=== PATIENT | female | born 1940 | race American Indian/Alaskan Native ===

== ENCOUNTER 2018-06-28 17:48 | Observation (INO) | payer MEDICARE, BC ==
[2018-06-28 18:51] LABS: BASO # 0.01 K/mm3 (0.0-2.0); BASO % 0.2 % (0.0-3.0); EOS # 0.2 (0.0-0.7); EOS % 4.7 % (1.5-5.0); GRAN # 2.9 (1.4-6.5); GRAN % 57.1 % (50.0-68.0); HEMOGLOBIN 10.7 g/dL (12.0-16.0); LYMPH # 1.3 (1.2-3.4); LYMPH % 25.6 % (22.0-35.0); MEAN CORPUSCULAR HEMOGLOBIN 27.8 pg (25.0-35.0); MEAN CORPUSCULAR HGB CONC 34.7 g/dl (31.0-37.0); MEAN PLATELET VOLUME 9.9 fl (7.0-11.0); MONO # 0.6 (0.1-0.6); MONO % 12.4 % (1.0-6.0); RBC 3.85 10^6/uL (3.5-6.1); RED CELL DISTRIBUTION WIDTH 17.2 % (11.5-14.5); WHITE BLOOD COUNT 5.1 10^3/uL (4.5-11.0)
[2018-06-28 19:00] LABS: ALB/GLOB RATIO 1.3 (1.1-1.8); ALBUMIN 4.1 g/dL (3.0-4.8); CALCIUM 9.5 mg/dL (8.4-10.5)
[2018-06-28 19:01] LABS: INR 1.02; PARTIAL THROMBOPLASTIN TIME 26.2 Seconds (25.1-36.5); PROTHROMBIN TIME 11.6 SECONDS (9.4-12.5)
--- NOTE | 2018-06-28 19:19 | ED PDOC ---
Arrival/HPI - General Chief Complaint: Abdominal Pain Time Seen by Provider: 06/28/18 17:56 Historian: Parent - History of Present Illness Narrative History of Present Illness (Text): 06/28/18 19:58 78-year-old female with a history of stroke presenting today with a one-month history of continued worsening diarrhea and abdominal pain. Patient is nonverbal but family states that the patient has been complaining of abdominal pain. They state they have noted dark stools. They state of the patient completed antibiotics for one week without improvement in the diarrhea. They stated the patient has an occasional cough. Patient denies pain in the chest. Family denies fevers at home. No other complaints Time/Duration: > month Symptom Onset: Gradual Symptom Course: Worsening Quality: Unable to Describe Past Medical History - Provider Review Nursing Documentation Reviewed: Yes - Travel History Have you recently traveled outside [place] w/in the past 3 mons?: No - Infectious Disease Hx of Infectious Diseases: None - Tetanus Immunization Tetanus Immunization: >10 years Ago - Reproductive Menopause: Yes - Cardiac Hx Hypertension: Yes - Pulmonary Hx Asthma: No Hx Bronchitis: No Hx Chronic Obstructive Pulmonary Disease (COPD): No Hx Emphysema: No - HEENT Hx HEENT Disorder: No - Renal Hx Renal Disorder: No - Endocrine/Metabolic Hx Endocrine Disorders: No - Hematological/Oncological Hx Blood Disorders: No Hx Blood Transfusions: No - Integumentary Hx Dermatological Disorder: No - Musculoskeletal/Rheumatological Hx Arthritis: Yes - Gastrointestinal Hx Gastrointestinal Disorders: Yes - Genitourinary/Gynecological Hx Cervical Cancer: Yes - Psychiatric Hx Psychophysiologic Disorder: No Hx Substance Use: No - Surgical History Hx Hysterectomy: Yes Other/Comment: PEG INsertion 2016.peg replacement 2 weeks ago. - Anesthesia Hx Anesthesia: Yes Hx Anesthesia Reactions: No Hx Malignant Hyperthermia: No - Suicidal Assessment Feels Threatened In Home Enviroment: No Family/Social History - Physician Review Nursing Documentation Reviewed: Yes Family/Social History: Unknown Family HX Smoking Status: Never Smoked Hx Alcohol Use: No Hx Substance Use: No Allergies/Home Meds Allergies/Adverse Reactions: Allergies No Known Allergies Allergy (Verified 02/22/18 12:09) Home Medications: Home Meds Medication Instructions Recorded Confirmed Losartan [Cozaar] 100 mg PEG DAILY 02/01/17 06/28/18 Allopurinol [Zyloprim] 100 mg PO DAILY 06/28/18 06/28/18 Carvedilol [Coreg] 12.5 mg PO BID 06/28/18 06/28/18 Colchicine [Mitigare] 0.6 mg PO DAILY 06/28/18 06/28/18 Losartan [Cozaar] 100 mg PO DAILY 06/28/18 06/28/18 Simvastatin 10 mg PO DAILY 06/28/18 06/28/18 hydrALAZINE [hydralazine 100 mg PO BID 06/28/18 06/28/18 Hydrochloride] Review of Systems - Review of Systems Constitutional: absent: Fevers Respiratory: Cough Cardiovascular: absent: Chest Pain Gastrointestinal: Abdominal Pain, Diarrhea. absent: Vomiting Genitourinary Female: absent: Urine Output Changes Musculoskeletal: absent: Arthralgias Physical Exam Vital Signs Reviewed: Yes Vital Signs Temp Pulse Resp BP Pulse Ox 06/28/18 18:04 99.5 F 74 18 200/94 H 96 Temperature: Afebrile Blood Pressure: Hypertensive Pulse: Regular Respiratory Rate: Normal Appearance: Positive for: Well-Appearing, Non-Toxic, Comfortable Pain Distress: None Mental Status: Positive for: other (alert) - Systems Exam Head: Present: Atraumatic Mouth: Present: Moist Mucous Membranes Neck: Present: Normal Range of Motion Respiratory/Chest: Present: Clear to Auscultation, Good Air Exchange. No: Respiratory Distress, Accessory Muscle Use, Wheezes Cardiovascular: Present: Regular Rate and Rhythm, Normal S1, S2. No: Murmurs Abdomen: Present: Tenderness (diffuse tenderness), Normal Bowel Sounds, Feeding Tubes (peg tube in place; no erythema. ). No: Peritoneal Signs, Rebound, Guarding Rectal: Present: Occult Blood, Hemorrhoids. No: Rectal Tenderness, Gross Blood, Melena, Normal Rectal Tone Upper Extremity: Present: Other (contractions bilaterally left > right) Lower Extremity: Present: Other (contractions bilaterally) Skin: Present: Warm, Dry Psychiatric: Present: Alert Medical Decision Making ED Course and Treatment: 06/28/18 20:01 Patient is nontoxic well appearing with stable vital signs presenting with diarrhea and abdominal pain CBC wnl CMP bun; 40 Lipase Patient reassessment: resting comfortably with family at bedside. vitals improved. Urinalysis CAT scan: FINDINGS: LUNG BASES: The lung bases appear clear. No pleural effusions are seen. Small pericardial effusion is present. LIVER: Unremarkable. GALLBLADDER AND BILE DUCTS: The gallbladder appears within normal limits. No radioopaque gallstones are seen. No biliary ductal dilatation is evident. PANCREAS: Unremarkable. SPLEEN: Unremarkable. ADRENAL GLANDS: Unremarkable. KIDNEYS, URETERS, AND BLADDER: Multiple bilateral renal cysts with the largest cyst within the right kidney measuring 9.1 x 6.3 cm. There is no hydronephrosis or hydroureter. No urinary calculi are seen. STOMACH AND BOWEL: PEG tube is seen within the stomach and there are multiple fluid-filled minimally distended loops of small bowel within the abdomen. Small periumbilical hernia containing fat present. APPENDIX: No evidence of acute appendicitis on CT examination. PERITONEUM: No free fluid. No free air. LYMPH NODES: No lymphadenopathy is evident. VASCULATURE: No evidence of abdominal aortic aneurysm. Advanced atherosclerotic changes present. BONES: No aggressive appearing osseous lesion. No acute osseous pathology evident. IMPRESSION: No acute intra-abdominal abnormality. Small pericardial effusion. Advanced atherosclerotic changes. Prominent renal cysts largest within the right kidney measuring 9.1 x 6.3 cm. Some fluid-filled loops of small bowel within the abdomen and pelvis. PEG tube within the stomach. Clinical correlation advised. Discussed all results with family in depth Case was discussed in depth with Dr. Cheema. admit observational status. Advised half normal saline at 40 mL/h and consult GI and nephrology. pt to be NPO/no tube feedings. all aspects of this case were discussed the attending of record. Impression: Abdominal pain, diarrhea, dehydration obs. med/surg. - Lab Interpretations Lab Results: 06/28/18 18:20 06/28/18 18:20 Lab Results 06/28/18 18:20: WBC 5.1, RBC 3.85, Hgb 10.7 L, Hct 30.8 L, MCV 80.0, MCH 27.8, MCHC 34.7, RDW 17.2 H, Plt Count 256, MPV 9.9, Gran % 57.1, Lymph % (Auto) 25.6, [place] % (Auto) 12.4 H, Eos % (Auto) 4.7, Baso % (Auto) 0.2, Gran # 2.90, Lymph # (Auto) 1.3, [place] # (Auto) 0.6, Eos # (Auto) 0.2, Baso # (Auto) 0.01 06/28/18 18:20: Sodium 132, Potassium 4.8, Chloride 95 L, Carbon Dioxide 31, Anion Gap 10, BUN 40 H, Creatinine 1.1, Est GFR ( Amer) 58, Est GFR (Non- Af Amer) 48, Random Glucose 98, Calcium 9.5, Total Bilirubin 0.4, AST 38 H D, ALT 34, Alkaline Phosphatase 96, Total Protein 7.3, Albumin 4.1, Globulin 3.3, Albumin/Globulin Ratio 1.3 06/28/18 18:20: PT 11.6, INR 1.02, APTT 26.2 - RAD Interpretation Radiology Orders: 06/28/18 18:16 CHEST PORTABLE [RAD] Stat 06/28/18 19:08 ABD & PELVIS W/O PO OR IV CONT [CT] Stat Disposition/Present on Arrival - Present on Arrival Any Indicators Present on Arrival: No History of DVT/PE: No History of Uncontrolled Diabetes: No Urinary Catheter: No History of Decub. Ulcer: No History Surgical Site Infection Following: None - Disposition Have Diagnosis and Disposition been Completed?: Yes Diagnosis: Abdominal pain, Dehydration, Diarrhea Disposition: HOSPITALIZED Disposition Time: 20:43 Patient Plan: Observation Condition: FAIR
[2018-06-28] MEDS ORDERED: Sodium Chloride 0.45% 500 ML IV ONE ×2 (22:10)
[2018-06-28 23:47] LABS: PH,URINE 7.5 (4.7-8.0); URINE BILIRUBIN NEGATIVE (NEGATIVE); URINE BLOOD NEGATIVE (NEGATIVE); URINE GLUCOSE (UA) NEGATIVE (NEGATIVE); URINE LEUKOCYTE ESTERASE NEGATIVE Leu/uL (NEGATIVE); URINE PROTEIN 30 mg/dL (<30 mg/dL); URINE UROBILINOGEN 0.2 E.U./dL (<1 E.U./dL)
[2018-06-28 23:52] LABS: URINE APPEARANCE CLEAR (CLEAR); URINE COLOR YELLOW (YELLOW)
--- NOTE | 2018-06-29 00:12 | CARD ---
APPROVED REPORT Date of service: 06/28/2018 EKG Measurement Heart [id number] <Conclusion> Normal sinus rhythm Moderate voltage criteria for LVH, may be normal variant Nonspecific T wave abnormality Poor R wave progression in Precordial leads Abnormal ECG
[2018-06-29 00:15] LABS: URINE EPITHELIAL CELLS 0 - 2 /hpf (0-5); URINE RBC 0 - 2 /hpf (0-2); URINE WBC 0 - 2 /hpf (0-6)
[2018-06-29] MEDS ORDERED: Influenza Vaccine 60 mcg/0.5 mL SYR (4YR UP) IM ONE (03:49)
[2018-06-29] MEDS ORDERED: Pneumococcal 23-Valent Vaccine IM ONE (03:49)
[2018-06-29 08:22] VITALS: RESP 20; O2SAT 100
--- NOTE | 2018-06-29 08:27 | CT ---
Date of service: 06/28/2018 PROCEDURE: CT Abdomen and Pelvis without intravenous contrast HISTORY: ABDOMINAL PAIN/diarrhea COMPARISON: None. TECHNIQUE: Technique. Contrast dose: Radiation dose: Total exam DLP = 605.28 mGy-cm. This CT exam was performed using one or more of the following dose reduction techniques: Automated exposure control, adjustment of the mA and/or kV according to patient size, and/or use of iterative reconstruction technique. FINDINGS: LOWER THORAX: Cardiomegaly. LIVER: Unremarkable. No gross lesion or ductal dilatation. GALLBLADDER AND BILE DUCTS: Unremarkable. PANCREAS: Unremarkable. No gross lesion or ductal dilatation. SPLEEN: Unremarkable. ADRENALS: Unremarkable. No mass. KIDNEYS AND URETERS: Multiple large bilateral renal cysts.. No hydronephrosis. No solid mass. VASCULATURE: Unremarkable. No aortic aneurysm. Aortic calcifications. BOWEL: Gastrostomy tube. No obstruction. No gross mural thickening. APPENDIX: Unremarkable. Normal appendix. PERITONEUM: Unremarkable. No free fluid. No free air. LYMPH NODES: Unremarkable. No enlarged lymph nodes. BLADDER: Unremarkable. REPRODUCTIVE: Hysterectomy. BONES: No acute fracture. OTHER FINDINGS: Eventration of the anterior abdominal wall as well as the pelvic floor. IMPRESSION: No acute pathology.
--- NOTE | 2018-06-29 09:24 | RAD ---
Date of service: 06/28/2018 HISTORY: abd pain COMPARISON: No prior. FINDINGS: LUNGS: No active pulmonary disease. PLEURA: No significant pleural effusion identified, no pneumothorax apparent. CARDIOVASCULAR: Aortic calcification Mild cardiomegaly no pulmonary vascular congestion. OSSEOUS STRUCTURES: No significant abnormalities. VISUALIZED UPPER ABDOMEN: Normal. OTHER FINDINGS: None. IMPRESSION: No active disease.
--- NOTE | 2018-06-29 10:17 | CP.PCM.CON ---
<Savage Tidwell - Last Filed: 06/29/18 11:52> History of Present Illness - History of Present Illness History of Present Illness: PGY6 GI Fellow Consult Note Patient is a 78yo female with PMHx significant for CVA (currently on plavix) with resultant aphasia/dysphagia requiring PEG tube, DM, HTN, CKD who presented to the ED for diarrhea and abdominal pain. The patient is unable to provide any history given her baseline aphasia. Per documentation, patient's family noted progressively worsening diarrhea for the last month with occasional "dark stool". Patient was prescribed a course of antibiotic therapy (unknown which medications were prescribed) earlier this week without improvement in symptoms. There is no record of stool frequency. Per ED and nursing, no episodes of diarrhea since arrival. Lab work unchanged from baseline. A CT performed in the ED was unremarkable. 12 system ROS cannot be performed given clinical condition PMHx: See HPI PSHx: No prior surgery documented FHx: Unable to assess Social: No history of tobacco, EtOH or illicit drug use Endo: EGD/PEG 03/03/2016 with bedside exchange on 02/22/18 Past Patient History - Infectious Disease Hx of Infectious Diseases: None - Tetanus Immunizations Tetanus Immunization: >10 years Ago - Past Medical History & Family History Past Medical History?: Yes - Past Social History Smoking Status: Unknown If Ever Smoked - CARDIAC Hx Hypertension: Yes - PULMONARY Hx Asthma: No Hx Bronchitis: No Hx Chronic Obstructive Pulmonary Disease (COPD): No Hx Emphysema: No - HEENT Hx HEENT Problems: No - RENAL Hx Chronic Kidney Disease: No - ENDOCRINE/METABOLIC Hx Endocrine Disorders: No - HEMATOLOGICAL/ONCOLOGICAL Hx Blood Disorders: No - INTEGUMENTARY Hx Dermatological Problems: No - MUSCULOSKELETAL/RHEUMATOLOGICAL Hx Arthritis: Yes Hx Falls: No - GASTROINTESTINAL Hx Gastrointestinal Disorders: Yes - GENITOURINARY/GYNECOLOGICAL Hx Incontinence: Yes - PSYCHIATRIC Hx Psychophysiologic Disorder: No - SURGICAL HISTORY Hx Hysterectomy: Yes Other/Comment: PEG INsertion 2015 - ANESTHESIA Hx Anesthesia: Yes Hx Anesthesia Reactions: No Hx Malignant Hyperthermia: No Meds Allergies/Adverse Reactions: Allergies Allergy/AdvReac Type Severity Reaction Status Date / Time No Known Allergies Allergy Verified 02/22/18 12:09 - Medications Medications: Current Medications Allopurinol (Zyloprim) 100 mg PO DAILY [facility] Last Admin: 06/29/18 10:03 Dose: 100 mg Atorvastatin Calcium (Lipitor) 10 mg PO DIN [facility] Carvedilol (Coreg) 12.5 mg PO BID [facility] Last Admin: 06/29/18 10:04 Dose: 12.5 mg Clopidogrel Bisulfate (Plavix) 75 mg PO DAILY [facility] Last Admin: 06/29/18 10:03 Dose: 75 mg Colchicine (Colocrys) 0.6 mg PO DAILY [facility] Last Admin: 06/29/18 10:03 Dose: 0.6 mg Hydralazine HCl (Apresoline) 100 mg PO BID [facility] Last Admin: 06/29/18 10:04 Dose: 100 mg Losartan Potassium (Cozaar) 100 mg PEG DAILY [facility] Physical Exam - Constitutional Appears: No Acute Distress, Chronically Ill - Eye Exam Eye Exam: EOMI, PERRL - ENT Exam ENT Exam: Mucous Membranes Moist - Respiratory Exam Respiratory Exam: Clear to Auscultation Bilateral. absent: Rales, Rhonchi, Wheezes - Cardiovascular Exam Cardiovascular Exam: RRR, +S1, +S2 - GI/Abdominal Exam GI & Abdominal Exam: Normal Bowel Sounds, Soft. absent: Distended, Firm, Guardi ng, Organomegaly, Rigid, Tenderness Additional comments: PEG tube in LUQ underneath abdominal binder - Extremities Exam Extremities exam: Negative for: pedal edema Additional comments: contractures in all extremities - Neurological Exam Additional comments: awake, aphasic - Skin Skin Exam: Dry, Warm Results - Vital Signs Recent Vital Signs: Last Vital Signs Temp 99 F 06/29/18 06:00 Pulse 99 H 06/29/18 10:04 Resp 20 06/29/18 06:00 BP 171/83 H 06/29/18 10:04 Pulse Ox 100 06/29/18 06:00 - Labs Result Diagrams: 06/28/18 18:20 06/28/18 18:20 Labs: Laboratory Results - last 24 hr 06/28/18 06/28/18 06/28/18 18:20 18:20 18:20 WBC 5.1 RBC 3.85 Hgb 10.7 L Hct 30.8 L MCV 80.0 MCH 27.8 MCHC 34.7 RDW 17.2 H Plt Count 256 MPV 9.9 Gran % 57.1 Lymph % (Auto) 25.6 [place] % (Auto) 12.4 H Eos % (Auto) 4.7 Baso % (Auto) 0.2 Gran # 2.90 Lymph # (Auto) 1.3 [place] # (Auto) 0.6 Eos # (Auto) 0.2 Baso # (Auto) 0.01 PT 11.6 INR 1.02 APTT 26.2 Sodium 132 Potassium 4.8 Chloride 95 L Carbon Dioxide 31 Anion Gap 10 BUN 40 H Creatinine 1.1 Est GFR ( Amer) 58 Est GFR (Non-Af Amer) 48 Random Glucose 98 Calcium 9.5 Total Bilirubin 0.4 AST 38 H D ALT 34 Alkaline Phosphatase 96 Total Protein 7.3 Albumin 4.1 Globulin 3.3 Albumin/Globulin Ratio 1.3 Lipase Urine Color Urine Appearance Urine pH Ur Specific [place] Urine Protein Urine Glucose (UA) Urine Ketones Urine Blood Urine Nitrate Urine Bilirubin Urine Urobilinogen Ur Leukocyte Esterase Urine RBC Urine WBC Ur Epithelial Cells Urine Bacteria Blood Type Antibody Screen BBK History Checked 06/28/18 06/28/18 06/28/18 20:00 20:00 23:36 WBC RBC Hgb Hct MCV MCH MCHC RDW Plt Count MPV Gran % Lymph % (Auto) [place] % (Auto) Eos % (Auto) Baso % (Auto) Gran # Lymph # (Auto) [place] # (Auto) Eos # (Auto) Baso # (Auto) PT INR APTT Sodium Potassium Chloride Carbon Dioxide Anion Gap BUN Creatinine Est GFR ( Amer) Est GFR (Non-Af Amer) Random Glucose Calcium Total Bilirubin AST ALT Alkaline Phosphatase Total Protein Albumin Globulin Albumin/Globulin Ratio Lipase 409 H Urine Color Yellow Urine Appearance Clear Urine pH 7.5 Ur Specific [place] 1.010 Urine Protein 30 H Urine Glucose (UA) Negative Urine Ketones Negative Urine Blood Negative Urine Nitrate Negative Urine Bilirubin Negative Urine Urobilinogen 0.2 Ur Leukocyte Esterase Negative Urine RBC 0 - 2 Urine WBC 0 - 2 Ur Epithelial Cells 0 - 2 Urine Bacteria None Blood Type B POSITIVE Antibody Screen Negative BBK History Checked Patient has bt Assessment & Plan - Assessment and Plan (Free Text) Assessment: Patient is a 78yo female with PMHx significant for CVA (currently on plavix) with resultant aphasia/dysphagia requiring PEG tube, DM, HTN, CKD who presented to the ED for diarrhea and abdominal pain -Diarrhea -Abdominal pain -H/O CVA with resultant aphasia/dysphagia; currently on Plavix Plan: -No significant tenderness or abnormality noted on physical exam -CT reviewed and unremarkable -Lab work at baseline - HGB unchanged from prior -No episodes of diarrhea since admission -If patient has loose stool, would collect for C diff and culture -Consider medication causes of diarrhea/GI upset - particularly Colchicine -Resume tube feeding - Date & Time Date: 06/29/18 Time: 08:40 <ValeriyJesse Iveth - Last Filed: 06/29/18 12:00> Meds - Medications Medications: Current Medications Allopurinol (Zyloprim) 100 mg PO DAILY [facility] Last Admin: 06/29/18 10:03 Dose: 100 mg Atorvastatin Calcium (Lipitor) 10 mg PO DIN [facility] Carvedilol (Coreg) 25 mg PEG BID [facility] Clopidogrel Bisulfate (Plavix) 75 mg PO DAILY [facility] Last Admin: 06/29/18 10:03 Dose: 75 mg Colchicine (Colocrys) 0.6 mg PO DAILY [facility] Last Admin: 06/29/18 10:03 Dose: 0.6 mg Hydralazine HCl (Apresoline) 100 mg PO BID [facility] Last Admin: 06/29/18 10:04 Dose: 100 mg Losartan Potassium (Cozaar) 100 mg PEG DAILY [facility] Last Admin: 06/29/18 10:03 Dose: 100 mg Vitamin B Complex/Vit C/Folic Acid (Nephro-Fern) 1 tab PEG 0800 [facility] Results - Vital Signs Recent Vital Signs: Last Vital Signs Temp 99 F 06/29/18 06:00 Pulse 99 H 06/29/18 10:04 Resp 20 06/29/18 06:00 BP 171/83 H 06/29/18 10:04 Pulse Ox 100 06/29/18 06:00 - Labs Result Diagrams: 06/28/18 18:20 06/28/18 18:20 Labs: Laboratory Results - last 24 hr 06/28/18 06/28/18 06/28/18 18:20 18:20 18:20 WBC 5.1 RBC 3.85 Hgb 10.7 L Hct 30.8 L MCV 80.0 MCH 27.8 MCHC 34.7 RDW 17.2 H Plt Count 256 MPV 9.9 Gran % 57.1 Lymph % (Auto) 25.6 [place] % (Auto) 12.4 H Eos % (Auto) 4.7 Baso % (Auto) 0.2 Gran # 2.90 Lymph # (Auto) 1.3 [place] # (Auto) 0.6 Eos # (Auto) 0.2 Baso # (Auto) 0.01 PT 11.6 INR 1.02 APTT 26.2 Sodium 132 Potassium 4.8 Chloride 95 L Carbon Dioxide 31 Anion Gap 10 BUN 40 H Creatinine 1.1 Est GFR ( Amer) 58 Est GFR (Non-Af Amer) 48 Random Glucose 98 Calcium 9.5 Total Bilirubin 0.4 AST 38 H D ALT 34 Alkaline Phosphatase 96 Total Protein 7.3 Albumin 4.1 Globulin 3.3 Albumin/Globulin Ratio 1.3 Lipase Urine Color Urine Appearance Urine pH Ur Specific [place] Urine Protein Urine Glucose (UA) Urine Ketones Urine Blood Urine Nitrate Urine Bilirubin Urine Urobilinogen Ur Leukocyte Esterase Urine RBC Urine WBC Ur Epithelial Cells Urine Bacteria Blood Type Antibody Screen BBK History Checked 06/28/18 06/28/18 06/28/18 20:00 20:00 23:36 WBC RBC Hgb Hct MCV MCH MCHC RDW Plt Count MPV Gran % Lymph % (Auto) [place] % (Auto) Eos % (Auto) Baso % (Auto) Gran # Lymph # (Auto) [place] # (Auto) Eos # (Auto) Baso # (Auto) PT INR APTT Sodium Potassium Chloride Carbon Dioxide Anion Gap BUN Creatinine Est GFR ( Amer) Est GFR (Non-Af Amer) Random Glucose Calcium Total Bilirubin AST ALT Alkaline Phosphatase Total Protein Albumin Globulin Albumin/Globulin Ratio Lipase 409 H Urine Color Yellow Urine Appearance Clear Urine pH 7.5 Ur Specific [place] 1.010 Urine Protein 30 H Urine Glucose (UA) Negative Urine Ketones Negative Urine Blood Negative Urine Nitrate Negative Urine Bilirubin Negative Urine Urobilinogen 0.2 Ur Leukocyte Esterase Negative Urine RBC 0 - 2 Urine WBC 0 - 2 Ur Epithelial Cells 0 - 2 Urine Bacteria None Blood Type B POSITIVE Antibody Screen Negative BBK History Checked Patient has bt Attending/Attestation - Attestation I have fully participated in the care of the patient.: Yes I have reviewed all pertinent clinical information: Yes Notes (Text): 06/29/18 11:57 CVA on plavix Aphasia Dysphagia, s/p PEG HTN / DM CKD Diarrhea - resolved - Resume tube feeding and observe for clinical response - CT imaging reviewed by me showing no gross abnormalities - Consider stool studies if further additional loose bowel movements noted - Consider medication change if continued diarrhea noted (ie. colchicine) - If patient tolerating tube feeding, from GI perspective ok to discharge from hospital with additional outpatient follow up. Discussed with Dr. Cheema.
--- NOTE | 2018-06-29 10:43 | CP.PCM.APN ---
Subjective - Date & Time of Evaluation Date of Evaluation: 06/29/18 Time of Evaluation: 09:50 - Subjective Subjective: Pt seen and examined at bedside. Pt is aphasic. She opens her eyes on verbal and tactile stimuli. Objective - Vital Signs/Intake and Output Vital Signs (last 24 hours): Temp Pulse Resp BP Pulse Ox 99 F 99 H 20 171/83 H 100 06/29/18 06:00 06/29/18 10:04 06/29/18 06:00 06/29/18 10:04 06/29/18 06:00 - Medications Medications: Current Medications Allopurinol (Zyloprim) 100 mg PO DAILY [facility] Last Admin: 06/29/18 10:03 Dose: 100 mg Atorvastatin Calcium (Lipitor) 10 mg PO DIN [facility] Carvedilol (Coreg) 12.5 mg PO BID [facility] Last Admin: 06/29/18 10:04 Dose: 12.5 mg Clopidogrel Bisulfate (Plavix) 75 mg PO DAILY [facility] Last Admin: 06/29/18 10:03 Dose: 75 mg Colchicine (Colocrys) 0.6 mg PO DAILY [facility] Last Admin: 06/29/18 10:03 Dose: 0.6 mg Hydralazine HCl (Apresoline) 100 mg PO BID [facility] Last Admin: 06/29/18 10:04 Dose: 100 mg Losartan Potassium (Cozaar) 100 mg PEG DAILY [facility] - Labs Labs: 06/28/18 18:20 06/28/18 18:20 PT 11.6 SECONDS (9.4-12.5) 06/28/18 18:20 INR 1.02 06/28/18 18:20 APTT 26.2 Seconds (25.1-36.5) 06/28/18 18:20 - Constitutional Appears: No Acute Distress - Head Exam Head Exam: ATRAUMATIC - Eye Exam Eye Exam: Normal appearance - ENT Exam ENT Exam: Mucous Membranes Moist - Respiratory Exam Respiratory Exam: Clear to Ausculation Bilateral, NORMAL BREATHING PATTERN - Cardiovascular Exam Cardiovascular Exam: REGULAR RHYTHM, +S1, +S2 - GI/Abdominal Exam GI & Abdominal Exam: Soft, Normal Bowel Sounds Additional comments: +PEG - Rectal Exam Rectal Exam: Deferred - Extremities Exam Additional comments: thong upper and lower ext contracted - Neurological Exam Neurological Exam: Awake Assessment and Plan - Assessment and Plan (Free Text) Assessment: Pt is a 78 y.o. female with pmhx of CVA, HTN, PEG, and CKD who presented in ED 2/2 worsening diarrhea and abdominal pain. Pt did not have diarrhea since admission. Impressions Chest X-Ray 06/28/18 18:16 IMPRESSION: No active disease. Abdomen/Pelvis CT 06/28/18 19:08 IMPRESSION: No acute pathology. Plan: Resume tube feeding per GI recs - if tolerating diet and no diarrhea, GI will clear for discharge home Will collect cdiff if there is any diarrhea GI and Nephro on consult Meds per MAR Will continue to follow
[2018-06-29] MEDS ORDERED: Nystatin 100,000 Units/gm Topical Pow(15 gm) TOP SCH (13:30)
--- NOTE | 2018-06-29 14:54 | CP.PCM.CON ---
History of Present Illness - History of Present Illness History of Present Illness: Nephrology Consultation Note: Assessment: Stable acute gastroenteritis Diabetic chronic Kidney Disease (E11.22) Hypertensive Chronic Kidney Disease (I12.9) Chronic Kidney Disease (N18.3) Stage 3 with ? mg proteinuria (R80.9) likely due to DM/HTN hx of CVA, anemia Plan No acute need for renal replacement therapy at this time. Hypertension control with meds as ordered. Maintain hemodynamics stable. Avoid hypotension. Patient on ACEI/ARB as losartan 100 mg/d. will increase coreg Monitor Input/Output, daily weights and renal function with basic metabolic panel GI following Glycemic control Further work up/management as per primary team pt stable for d/c from renal perspective when planned by team. Thanks for allowing me to participate in care of your patient. Will follow patient with you. Please call if any Qs. had dw team Dr Jose M Palacios Office: [phone] Chief Complaint; unable Reason for consult: HTN and CKD 3 HPI: Pt is a 78 F with hx of diabetes Mellitus ( years), hypertension (years) CVA with extremity contractures, non verbal/non communicative, s/p PEG tube presented with complaints of diarrhoea and admitted for HTN, dehydration. Denies OTC/herbal meds or NSAIDs No recent iodinated contrast exposure. No obvious episodes of low BP. ROS: pt unable to provide. Physical Examination: General Appearance: Comfortable, in no acute respiratory distress. Vitals reviewed and noted as below Head; Atraumatic, normocephalic ENT: no ulcers no thrush. Tongue is midline. Oropharynx: no rash or ulcers. EYES: Pupils are equal, round and reactive to light accommodation. Eye muscles and extraocular movement intact. Sclera is anicteric. Neck; supple no lymphadenopathy, no thyromegaly or bruit Lungs: Normal respiratory rate/effort. Breath sounds bilateral equal and clear Heart: Normal rate. s1s2 normal. No rub or gallop. Extremities: no edema. No varicose veins Neurological: Patient is s/p CVA with extremity contractures, non verbal/non communicative Skin: Warm and dry. Normal turgor. No rash. Palpitation: Normal elasticity for age Abdomen: Abdomen is soft. Bowel sounds +. There is no abdominal tenderness, no guarding/rigidity no organomegaly. has PEG tube Psych: unable MSK: extremity contractures + : kidney or bladder not palpable Labs/imaging reviewed. Past medical history, past surgical history, family history, social history, allergy reviewed and noted as below Family hx: no hx of CKD. Rest non-contributory Past Patient History - Infectious Disease Hx of Infectious Diseases: None - Tetanus Immunizations Tetanus Immunization: >10 years Ago - Past Medical History & Family History Past Medical History?: Yes - Past Social History Smoking Status: Unknown If Ever Smoked - CARDIAC Hx Hypertension: Yes - PULMONARY Hx Asthma: No Hx Bronchitis: No Hx Chronic Obstructive Pulmonary Disease (COPD): No Hx Emphysema: No - HEENT Hx HEENT Problems: No - RENAL Hx Chronic Kidney Disease: No - ENDOCRINE/METABOLIC Hx Endocrine Disorders: No - HEMATOLOGICAL/ONCOLOGICAL Hx Blood Disorders: No - INTEGUMENTARY Hx Dermatological Problems: No - MUSCULOSKELETAL/RHEUMATOLOGICAL Hx Arthritis: Yes Hx Falls: No - GASTROINTESTINAL Hx Gastrointestinal Disorders: Yes - GENITOURINARY/GYNECOLOGICAL Hx Incontinence: Yes - PSYCHIATRIC Hx Psychophysiologic Disorder: No - SURGICAL HISTORY Hx Hysterectomy: Yes Other/Comment: PEG INsertion 2016 - ANESTHESIA Hx Anesthesia: Yes Hx Anesthesia Reactions: No Hx Malignant Hyperthermia: No Meds Allergies/Adverse Reactions: Allergies Allergy/AdvReac Type Severity Reaction Status Date / Time No Known Allergies Allergy Verified 02/22/18 12:09 - Medications Medications: Current Medications Allopurinol (Zyloprim) 100 mg PO DAILY [facility] Last Admin: 06/29/18 10:03 Dose: 100 mg Atorvastatin Calcium (Lipitor) 10 mg PO DIN [facility] Carvedilol (Coreg) 25 mg PEG BID [facility] Clopidogrel Bisulfate (Plavix) 75 mg PO DAILY [facility] Last Admin: 06/29/18 10:03 Dose: 75 mg Colchicine (Colocrys) 0.6 mg PO DAILY [facility] Last Admin: 06/29/18 10:03 Dose: 0.6 mg Hydralazine HCl (Apresoline) 100 mg PO BID [facility] Last Admin: 06/29/18 10:04 Dose: 100 mg Losartan Potassium (Cozaar) 100 mg PEG DAILY [facility] Last Admin: 06/29/18 10:03 Dose: 100 mg Nystatin (Nystop Topical Powder) 1 gm TOP DAILY [facility] Last Admin: 06/29/18 13:47 Dose: 100,000 units Vitamin B Complex/Vit C/Folic Acid (Nephro-Fern) 1 tab PEG 0800 [facility] Results - Vital Signs Recent Vital Signs: Last Vital Signs Temp 99 F 06/29/18 06:00 Pulse 99 H 06/29/18 10:04 Resp 20 06/29/18 06:00 BP 171/83 H 06/29/18 10:04 Pulse Ox 100 06/29/18 06:00 - Labs Result Diagrams: 06/28/18 18:20 06/28/18 18:20 Labs: Laboratory Results - last 24 hr 06/28/18 06/28/18 06/28/18 18:20 18:20 18:20 WBC 5.1 RBC 3.85 Hgb 10.7 L Hct 30.8 L MCV 80.0 MCH 27.8 MCHC 34.7 RDW 17.2 H Plt Count 256 MPV 9.9 Gran % 57.1 Lymph % (Auto) 25.6 [place] % (Auto) 12.4 H Eos % (Auto) 4.7 Baso % (Auto) 0.2 Gran # 2.90 Lymph # (Auto) 1.3 [place] # (Auto) 0.6 Eos # (Auto) 0.2 Baso # (Auto) 0.01 PT 11.6 INR 1.02 APTT 26.2 Sodium 132 Potassium 4.8 Chloride 95 L Carbon Dioxide 31 Anion Gap 10 BUN 40 H Creatinine 1.1 Est GFR ( Amer) 58 Est GFR (Non-Af Amer) 48 Random Glucose 98 Calcium 9.5 Total Bilirubin 0.4 AST 38 H D ALT 34 Alkaline Phosphatase 96 Total Protein 7.3 Albumin 4.1 Globulin 3.3 Albumin/Globulin Ratio 1.3 Lipase Urine Color Urine Appearance Urine pH Ur Specific [place] Urine Protein Urine Glucose (UA) Urine Ketones Urine Blood Urine Nitrate Urine Bilirubin Urine Urobilinogen Ur Leukocyte Esterase Urine RBC Urine WBC Ur Epithelial Cells Urine Bacteria Blood Type Antibody Screen BBK History Checked 06/28/18 06/28/18 06/28/18 20:00 20:00 23:36 WBC RBC Hgb Hct MCV MCH MCHC RDW Plt Count MPV Gran % Lymph % (Auto) [place] % (Auto) Eos % (Auto) Baso % (Auto) Gran # Lymph # (Auto) [place] # (Auto) Eos # (Auto) Baso # (Auto) PT INR APTT Sodium Potassium Chloride Carbon Dioxide Anion Gap BUN Creatinine Est GFR ( Amer) Est GFR (Non-Af Amer) Random Glucose Calcium Total Bilirubin AST ALT Alkaline Phosphatase Total Protein Albumin Globulin Albumin/Globulin Ratio Lipase 409 H Urine Color Yellow Urine Appearance Clear Urine pH 7.5 Ur Specific [place] 1.010 Urine Protein 30 H Urine Glucose (UA) Negative Urine Ketones Negative Urine Blood Negative Urine Nitrate Negative Urine Bilirubin Negative Urine Urobilinogen 0.2 Ur Leukocyte Esterase Negative Urine RBC 0 - 2 Urine WBC 0 - 2 Ur Epithelial Cells 0 - 2 Urine Bacteria None Blood Type B POSITIVE Antibody Screen Negative BBK History Checked Patient has bt
[2018-06-29 16:06] VITALS: BP 123/71; PULSE 88; TEMP 98.4
--- NOTE | 2018-06-29 18:58 | HP ---
DATE OF EXAM: 06/29/2018 HISTORY OF PRESENT ILLNESS: The patient was called to the ER to see her. She was sent in from her family. She is bedridden young lady with strokes. I do house calls on her. She is a 78-year-old female with history of two strokes. Starting diarrhea on and off with abdominal pain. She is nonverbal. She has dark stools. She has a feeding tube in place. She is on antibiotics. Occasional cough. She has hypertension, arthritis. She is contracted. She had gastrointestinal disorders. She has cervical cancer. PAST SURGICAL HISTORY: Hysterectomy. FAMILY HISTORY: Unknown family history. SOCIAL HISTORY: No smoking. No drinking. No drugs. ALLERGIES: NO KNOWN DRUG ALLERGIES. MEDICATIONS: Cozaar, Zyloprim, Coreg, colchicine, Cozaar, simvastatin, hydralazine. REVIEW OF SYSTEMS: She is nonverbal. She looks at her baseline. No apparent fevers or cough or chest pain. There is abdominal pain, diarrhea. Urine output unknown at this time. She has incontinent arthralgias. PHYSICAL EXAMINATION: GENERAL: Well-appearing, nontoxic, comfortable, alert, that is at her baseline, nonverbal. VITAL SIGNS: Temperature 99.5, pulse 74, respiratory rate 18, blood pressure 200/94, 96% O2 sat. HEENT: Head is atraumatic, normocephalic. Mucous membranes are moist. NECK: Supple. CARDIOPULMONARY: Regular rate. Normal S1, S2. LUNGS: Decreased breath sounds. Poor inspiration, but clear to auscultation. No wheezes or rhonchi. No rales. ABDOMEN: Soft. Questionable tenderness are to define with her. She has a feeding tube in place. No guarding or rebound. She did have a history of occult blood and hemorrhoids presently are none at this time. EXTREMITIES: She is contracted with all four extremities. SKIN: Warm and dry. She does get ulcers from time to time, which they do pretty good job on keeping she is in a hospital bed at home. LABORATORY DATA: CAT scan of the abdomen and pelvis show no intraabdominal abnormality. Chest x-ray is pending. She has a white count 5.1, hemoglobin 10.7, hematocrit 30.8 with platelets 266. INR 1.02. Sodium 132, potassium 4.8, BUN 40, creatinine 1.1. She is on IV fluids. GFR is 48. Sugar is 98. Calcium 9.5, total bili is 0.4. AST is 38, ALT is 34, alk phos 96, total protein 7.3, albumin is 4.1. Lipase is high at 409 with a normal CAT scan of the belly. IMPRESSION AND PLAN: She has consults with renal and GI. She will be on IV fluids and regular medications. We are holding off on the tube feedings for now. She is currently on observation level of care. My plan would be when I get the okay from renal and GI. We will discharge her back home today, otherwise we will see which way the course of treatment takes us. The patient diarrhea, abdominal pain, hypertension with dementia. Luis Cheema DO MTDD
[2018-06-30] MEDS ORDERED: Multivitamin Vitamin B Complex (Nephro-Vite) Tab PEG SCH (08:00)
== END 2018-06-29 20:41 | disposition home health service (06) ==
LOC: ED 17:48 → ERH 21:47 → 5RNO 06-29 00:37
PROVIDERS: ADMIT Family Medicine; ATTEND Family Medicine
DX: E86.0 Dehydration (principal); K52.9 Noninfective gastroenteritis and colitis, unspecified; E11.22 Type 2 diabetes mellitus with diabetic chronic kidney disease; I12.9 Hypertensive chronic kidney disease with stage 1 through stage 4 chronic kidney disease, or unspecified chronic kidney disease; N18.3 Chronic kidney disease, stage 3 (moderate); I69.320 Aphasia following cerebral infarction; F03.90 Unspecified dementia, unspecified severity, without behavioral disturbance, psychotic disturbance, mood disturbance, and anxiety; N28.1 Cyst of kidney, acquired; Z74.01 Bed confinement status; Z93.1 Gastrostomy status; Z85.41 Personal history of malignant neoplasm of cervix uteri
CPT/HCPCS: 71045; 74176; 80053; 81001; 83690; 85025; 85610; 85730; 86850; 86900; 87040; 87086; 93005; G0378; J0360; J7030

== ENCOUNTER 2018-10-20 09:29 | Emergency (ER) | payer BC, MEDICARE ==
[2018-10-20 09:45] VITALS: BMI 23.8
[2018-10-20 10:06] VITALS: TEMP 98.4
[2018-10-20] MEDS ORDERED: Iodixanol 320 MG/ML 100 ML BOTTLE IV ONE (10:26)
[2018-10-20 10:32] VITALS: RESP 18
--- NOTE | 2018-10-20 10:35 | ED PDOC ---
Arrival/HPI - General Chief Complaint: GI Problem Time Seen by Provider: 10/20/18 09:32 Historian: Family (Patient not communicative) - History of Present Illness Narrative History of Present Illness (Text): 10/20/18 10:31 A 78 year old female, whose past medical history includes hypertension, 2 CVAs (residual aphasia, body contractions), diabetes and PEG tube placement last year, presents to the ED accompanied by daughter. Daughter reports she was concerned upon noticing pink redness around tube, and presented to ED to check that tube was working properly. Patient notes patient is compliant with hypertension medication, but did not take it today. Daughter denies patient has any denies fevers, chills, dizziness, shortness of breath, dyspnea on exertion, cough, abdominal pain, nausea, vomiting, diarrhea, back pain, neck pain, urinary/bowel changes, or any other complaints. Time/Duration: < week Symptom Onset: Gradual Symptom Course: Unchanged Activities at Onset: Light Context: Home Past Medical History - Provider Review Nursing Documentation Reviewed: Yes - Infectious Disease Hx of Infectious Diseases: None - Tetanus Immunization Tetanus Immunization: >10 years Ago - Cardiac Hx Hypertension: Yes - Pulmonary Hx Asthma: No Hx Bronchitis: No Hx Chronic Obstructive Pulmonary Disease (COPD): No Hx Emphysema: No - HEENT Hx HEENT Disorder: No - Renal Hx Renal Disorder: No - Endocrine/Metabolic Hx Endocrine Disorders: No - Hematological/Oncological Hx Blood Disorders: No - Integumentary Hx Dermatological Disorder: No - Musculoskeletal/Rheumatological Hx Arthritis: Yes Hx Falls: No - Gastrointestinal Hx Gastrointestinal Disorders: Yes - Genitourinary/Gynecological Hx Incontinence: Yes - Psychiatric Hx Psychophysiologic Disorder: No Hx Substance Use: No - Surgical History Hx Hysterectomy: Yes Other/Comment: PEG INsertion 2016 - Anesthesia Hx Anesthesia: Yes Hx Anesthesia Reactions: No Hx Malignant Hyperthermia: No - Suicidal Assessment Feels Threatened In Home Enviroment: No Family/Social History - Physician Review Nursing Documentation Reviewed: Yes Family/Social History: Unknown Family HX Smoking Status: Unknown If Ever Smoked Hx Alcohol Use: No Hx Substance Use: No Allergies/Home Meds Allergies/Adverse Reactions: Allergies No Known Allergies Allergy (Verified 02/22/18 12:09) Home Medications: Home Meds Medication Instructions Recorded Confirmed Losartan [Cozaar] 100 mg PEG DAILY 02/01/17 06/28/18 Allopurinol [Zyloprim] 100 mg PO DAILY 06/28/18 06/28/18 Carvedilol [Coreg] 12.5 mg PO BID 06/28/18 06/28/18 Colchicine [Mitigare] 0.6 mg PO DAILY 06/28/18 06/28/18 Simvastatin 10 mg PO DAILY 06/28/18 06/28/18 hydrALAZINE [hydralazine 100 mg PO BID 06/28/18 06/28/18 Hydrochloride] Review of Systems - Physician Review All systems were reviewed & negative as marked: Yes - Review of Systems Constitutional: absent: Fevers Eyes: absent: Vision Changes ENT: absent: Rhinorrhea, Epistaxis Respiratory: absent: SOB, Cough Cardiovascular: absent: Chest Pain Gastrointestinal: absent: Diarrhea, Vomiting Genitourinary Female: absent: Frequency, Vaginal Bleeding Musculoskeletal: absent: Back Pain, Neck Pain Skin: absent: Rash Neurological: absent: Headache, Dizziness Endocrine: absent: Diaphoresis Hemo/Lymphatic: absent: Adenopathy Psychiatric: absent: Anxiety, Depression Physical Exam Vital Signs Reviewed: Yes Vital Signs Temp Pulse Resp Pulse Ox 10/20/18 10:05 98.4 F 88 16 100 Temperature: Afebrile Blood Pressure: Normal Pulse: Regular Respiratory Rate: Normal Appearance: Positive for: Well-Appearing, Non-Toxic, Comfortable Pain Distress: None Mental Status: Positive for: Alert and Oriented X 3 - Systems Exam Head: Present: Atraumatic, Normocephalic Pupils: Present: PERRL Extroacular Muscles: Present: EOMI Conjunctiva: Present: Normal Mouth: Present: Moist Mucous Membranes Neck: Present: Normal Range of Motion Respiratory/Chest: Present: Clear to Auscultation, Good Air Exchange. No: Respiratory Distress, Accessory Muscle Use Cardiovascular: Present: Regular Rate and Rhythm, Normal S1, S2. No: Murmurs Abdomen: Present: Other (Whitestone tissue from PEG tube, which is a normal variant. No skin redness, swelling, or pus around tube.). No: Tenderness (Soft, non tender), Distention Upper Extremity: Present: Edema (left UE swelling), NORMAL PULSES, Other (contracted). No: Cyanosis Lower Extremity: Present: Normal Inspection, NORMAL PULSES. No: Edema Neurological: Present: Motor Func Grossly Intact, Normal Sensory Function. No: Speech Normal (aphasic) Skin: Present: Warm, Dry, Normal Color. No: Rashes Medical Decision Making ED Course and Treatment: 10/20/18 10:41 Impression: A 78 year old female who presents to the ED accompanied by daughter, for a ch eckup on her PEG tube. Differential Diagnosis included but are not limited to: PEG tube malfunction and hypertension. Plan: -- Labs -- Coreg -- Cozaar -- CT abdomen -- Reassess and disposition Prior Visits: Notes and results from previous visits were reviewed. Progress Notes: 10/20/18 12:56 Patient was given her HTN medications in the ED today. Her blood pressure improved. She did not appear to be in any distress and family communicates with her well and they say she has not concerning symptoms. Labs reviewed and negative. Family also state she has had for a month or so a worsening swelling of right upper arm. US completed and was negative for DVT on prelim results. Dr. Cheema and I had a conversation about the results and he will make sure to follow up with the patient and family. - RAD Interpretation Radiology Orders: 10/20/18 10:08 ABDOMEN (FLAT PLATE) 1VIEW [RAD] Stat - Medication Orders Current Medication Orders: Discontinued Medications Carvedilol (Coreg) 12.5 mg PEG STAT STA Stop: 10/20/18 10:12 Losartan Potassium (Cozaar) 100 mg PEG STAT STA Stop: 10/20/18 10:13 - Scribe Statement The provider has reviewed the documentation as recorded by the Scribe David Bautista Provider Scribe Attestation: All medical record entries made by the Scribe were at my direction and personally dictated by me. I have reviewed the chart and agree that the record accurately reflects my personal performance of the history, physical exam, medical decision making, and the department course for this patient. I have also personally directed, reviewed, and agree with the discharge instructions and disposition. Disposition/Present on Arrival - Present on Arrival Any Indicators Present on Arrival: No History of DVT/PE: No History of Uncontrolled Diabetes: No Urinary Catheter: No History of Decub. Ulcer: No History Surgical Site Infection Following: None - Disposition Have Diagnosis and Disposition been Completed?: Yes Diagnosis: Pain around PEG tube site, Hypertension, Arm swelling Disposition: HOME/ ROUTINE Disposition Time: 12:59 Patient Plan: Discharge Patient Problems: Current Active Problems Problem Status Onset HTN (hypertension) Acute Pain around PEG tube site Acute Arm swelling Acute Condition: IMPROVED Additional Instructions: MASOOD SHANNON, thank you for letting us take care of you today. Your provider was Shawn Dos Santos DO and you were treated for FEEDING TUBE DISCOMFORT, RIght Arm Swelling, Hypertension. The emergency medical care you received today was directed at your acute symptoms. If you were prescribed any medication, please fill it and take as directed. It may take several days for your symptoms to resolve. Return to the Emergency Department if your symptoms worsen, do not improve, or if you have any other problems. Please contact your doctor or call one of the physicians/clinics you have been referred to that are listed on the Patient Visit Information form that is included in your discharge packet. Bring any paperwork you were given at discharge with you along with any medications you are taking to your follow up visit. Our treatment cannot replace ongoing medical care by a primary care provider outside of the emergency department. Thank you for allowing the [facility] team to be part of your care today. If you had an X-Ray or CT scan: A Radiologist will review the ED reading if any change in treatment is needed we will contact you. If you had a blood, urine, or wound culture: It will take several days for the results, if any change in treatment is needed we will contact you. If you had an STI test: It will take 48 hours for the results. Please call after 1 week if you have not heard back. Referrals: Luis Cheema DO [Primary Care Provider] - Follow up with primary Forms: [employer] (Romanian)
[2018-10-20 11:21] LABS: BASO # 0.01 K/mm3 (0.0-2.0); BASO % 0.2 % (0.0-3.0); EOS # 0.1 (0.0-0.7); EOS % 1.7 % (1.5-5.0); HEMOGLOBIN 9.9 g/dL (12.0-16.0); LYMPH # 1.3 (1.2-3.4); LYMPH % 20.6 % (22.0-35.0); MEAN CELL VOLUME 80.6 fl (80.0-105.0); MEAN CORPUSCULAR HEMOGLOBIN 27.5 pg (25.0-35.0); MEAN CORPUSCULAR HGB CONC 34.1 g/dl (31.0-37.0); MEAN PLATELET VOLUME 9.4 fl (7.0-11.0); MONO # 0.6 (0.1-0.6); MONO % 9.5 % (1.0-6.0); RBC 3.6 10^6/uL (3.5-6.1); RED CELL DISTRIBUTION WIDTH 16.1 % (11.5-14.5); WHITE BLOOD COUNT 6.3 10^3/uL (4.5-11.0)
--- NOTE | 2018-10-20 11:25 | RAD ---
Date of service: 10/20/2018 HISTORY: check for peg tube placement COMPARISON: None available. TECHNIQUE: Two view obtained. FINDINGS: BOWEL: Normal. No obstruction. No free air. Contrast was injected through the PEG tube which opacifies the fundus of the stomach. BONES: Normal. OTHER FINDINGS: None. IMPRESSION: PEG tube in satisfactory position. Contrast confirms intraluminal position.
[2018-10-20 11:28] LABS: ALBUMIN 3.6 g/dL (3.0-4.8); CALCIUM 8.9 mg/dL (8.4-10.5)
[2018-10-20 12:04] VITALS: BP 159/85; PULSE 85; O2SAT 98
--- NOTE | 2018-10-20 13:12 | US ---
PROCEDURE: Right upper extremity venous US CLINICAL HISTORY: Arm pain and swelling Evaluate for deep venous thrombosis. PHYSICIAN(S): Reno Jauregui M.D FINDINGS: The visualized rightinternal jugular vein is sonographically normal and compressible. No evidence of obstruction or thrombus is seen. The visualized segments of the right subclavian vein are patent with normal waveforms. No sonographic evidence of obstruction or thrombosis is seen. The visualized deep venous system of the proximal right upper extremity is sonographically normal and compressible. IMPRESSION: 1. No sonographic evidence for deep venous thrombosis in the visualized segments of the right upper extremity.
--- NOTE | 2018-10-21 03:15 | CARD ---
APPROVED REPORT Date of service: 10/20/2018 EKG Measurement Heart [id number] <Conclusion> Normal sinus rhythm Minimal voltage criteria for LVH, may be normal variant NDSTT abnormalities Borderline ECG
== END 2018-10-20 12:57 | disposition home or self-care (01) ==
LOC: ED 09:29
DX: T85.848A Pain due to other internal prosthetic devices, implants and grafts, initial encounter (principal); I10 Essential (primary) hypertension; E11.9 Type 2 diabetes mellitus without complications; Z86.73 Personal history of transient ischemic attack (TIA), and cerebral infarction without residual deficits
CPT/HCPCS: 74018; 80053; 83690; 83735; 85025; 93005; 93971; 99284; Q9967